=== PATIENT | male | born 1935 | race Caucasian/White ===

== ENCOUNTER 2017-01-10 19:37 | Observation (INO) | payer MEDICARE ==
[~2017-01-10] VITALS: Ht 175.3 cm; Wt 64.8 kg
[~2017-01-10 19:37] MED LIST: ATOR20TA65 PO; MULT-1018 PO; OMEP20CA11 PO; TRAM50TA2 PO
[2017-01-10] MEDS ORDERED: 0.9% Sodium Chloride 1,000 ML IV ONE (19:38)
--- NOTE | 2017-01-10 19:38 | ED.REPORT ---
HPI-Abd Pain M 40 and Over Date of Service January 10, 2017 ED Provider: Dr. Bello Wolf D.O. An 81 year old male with a medical history including diverticulosis and gastric cancer s/p subtotal gastrectomy with Antolin-en-Y reconstruction and cholecystectomy presents to the ED via EMS with epigastric abdominal pain onset suddenly at 1800 this evening, after eating pizza for dinner. The pain is described as "sharp" in nature. Associated symptoms include pallor and diaphoresis. EMS found the patient with a BP of 166/72, a respiration rate of 40 , and otherwise normal vital signs. He was given 324mg ASA, 75mcg fentanyl, and Nitro en route, with mild relief. The patient denies other symptoms. Nursing Notes Stated Complaint: UPPER GASTRIC PAIN Nursing Notes Reviewed: Yes Allergies: Coded Allergies: codeine (Verified Allergy, Intermediate, Nausea,Vomiting, 07/13/16) Scheduled Aspirin (Aspirin) 81 Mg Tablet 81 MG PO DAILY Atorvastatin Calcium (Atorvastatin Calcium) 10 Mg Tablet 10 MG PO HS Multivitamin (Multi Vitamin Daily) 1 Each Tablet 1 EACH PO DAILY Omeprazole (Omeprazole) 20 Mg Capsule.dr 20 MG PO DAILY Scheduled PRN Tramadol (Tramadol) 50 Mg Tablet 100 MG PO BID PRN PRN For Pain General Time Seen by MD: 19:37 Chief Complaint Abdominal pain Hx Obtained From: Patient Arrived By: Ambulance Sudden in Onset?: Yes Onset Occurred: 1 - 4 hours ago Symptom Duration: Since onset Location: : Epigastric Quality: Painful, Sharp Severity: Current: Moderate Severity: Maximum: Moderate Pertinent Negative: Relieved by nothing Context Related History: Reports: Abdominal surgery, Diverticulosis Recent Healthcare: No recent doctor visit Past Medical History Past Medical History Notes: PCP Dr. Duran Past Medical History Stage IA gastric cancer status post subtotal gastrectomy with Antolin-en-Y reconstruction and hiatal hernia repair July 24, 2012. TIA/CVA with ischemic left occipital infarcts, December 2015. Hyperlipidemia. Diverticulosis. Evaluation April 2016 for upper abdominal pain, suspected gastritis secondary to NSAID. Arthritis Spinal stenosis Past Surgical History Shoulder x2 Right heel Left achilles tendon Appendectomy. Tonsillectomy. Subtotal gastrectomy with Antolin-en-Y reconstruction and hiatal hernia repair July 24, 2012. Cholecystectomy Smoking History Former Smoker, Never Smoker Social History Alcohol Use: "Social" Ambulatory Status Independent Review of Systems Review of Systems Note: + Pallor Constitutional: Denies: Fever Respiratory: Denies: Non-productive cough, Shortness of breath GI: Reports: Abdominal pain (Epigastric), Denies: Diarrhea, Vomiting Complete sys rev & neg: except as marked. Skin: Reports Diaphoresis Physical Exam Initial Vital Signs Vital Signs (First) Date Time Temp Pulse Resp B/P Pulse Ox O2 Delivery O2 Flow Rate FiO2 01/10/17 19:56 36.4 77 24 135/69 100 Room Air Initial VS: Reviewed Head / Eyes: Atraumatic, Normocephalic ENT: Conjunctiva normal, No scleral icterus Neck: Supple, Full range of motion Skin: Warm, Dry, No cyanosis Neurologic: Alert, Oriented, Nonfocal Psychiatric: Mood/affect normal, Behavior normal, Normal thought content General/Constitutional: Awake, Alert, No acute distress Respiratory / Chest: Breath sounds NL, Breath sounds = bilat, No respiratory distress Cardiovascular: Heart rate NL, Regular rhythm, Heart sounds NL Abdomen: Soft Tenderness/Guarding/Rebound: Positive: Tender epigastric Interpretation & Diagnostics Lab Results Interpretation Result Diagram: 01/11/17 0415 01/11/17 0415 Test 01/10/17 19:45 01/10/17 21:42 01/10/17 22:43 Magnesium Level 2.0mg/dL (1.6-2.6) Lipase 46U/L (13-60) Acetaminophen Level < 15.0ug/mL Rx (10-25) Hold Urine Received (Received) Lactic Acid Level 0.7mmol/L (0.4-2.0) ECG Interpretation ECG Interpretation: Sinus rhythm rate [address] segments Time: 19:46 Interpreted by: ED physician X-Ray Chest Interpretation Chest Xray Interpretation: IMPRESSION: No acute pulmonary process. Dictated by: Liat Tan M.D. on 01/10/2017 at 20:20 View: Portable, 1 view Interpretation / Wet Read by: Interpret - Radiologist CT Abd / Pelvis Interpretation IMPRESSION: 1. No visualized acute abdominal or pelvic process. 2. Gastric surgery changed, unchanged 3. Diverticulosis. Dictated by: Liat Tan M.D. on 01/10/2017 at 22:14 Study type: Abdominal CT IV contrast Interpretation / Wet Read by: Interpret - Radiologist Re-Eval/Medical Decision Med Decision/Clinical Course The cause of Mr. Lazaro symptoms are uncertain. He has intermittent abdominal pain with mild transaminitis. CT scan is otherwise reassuring. I will admit him to the hospital for observation. I think his cardiac enzymes and liver enzymes need to be trended. I did call his insurance [employer] and left a message. Mr. Lazaro was concerned because he did not wish to be admitted if he was considering observation for fear of having to pay the bill. I was unable to speak with a person who can answer this question. After discussing this with Mr. Mrs. Lazaro we have agreed that he will spend the night in the hospital and we will go from there. Time of Eval: 20:37 Patient Status: Condition worsened Re-Evaluation/Progress Note: Patient's pain has worsened. Time of Eval: 22:46 Patient Status: Condition improved Re-Evaluation/Progress Note: Patient is feeling better. Time of Eval: 23:08 Patient Status: Condition improved Re-Evaluation/Progress Note: Patient is more tender in his epigastrium. Discussed with patient CT, x-ray, and lab results, diagnosis, and plan for admit. Patient agrees with plan for care and all questions were addressed. Consultation : Referral / Consult Name: Jai Palomo MD Call Returned at: 23:16 Compensation Specialist: Agrees with eval, Agrees with plan, Accepts admit Counseled Regarding: Diagnosis, Lab results, Need for admission Discharge & Departure Primary Impression: Abdominal pain Abdominal location: epigastric Qualified Code: R10.13 - Epigastric pain Disposition: ADMITTED TO HOSPITAL Vital Signs - All Vital Signs Date Time Temp Pulse Resp B/P Pulse Ox O2 Delivery O2 Flow Rate FiO2 01/10/17 19:56 36.4 77 24 135/69 100 Room Air )( All Prior VS Reviewed: Yes Condition: Improved Referrals: Ryder Duran MD (PCP) Terrence Attestation Portions of this note were transcribed by Sonya Sam. I, Dr. Wolf, personally performed the history, physical exam, and medical decision-making; I reviewed and confirmed the accuracy of the information in the transcribed note. Signed by: Terrence Wallace, 01/11/2017, 01:45 copies to: Ryder Duran MD, Todd P DO January 10, 2017 19:38 SONYA SAM January 10, 2017 19:53 Magnesium Level 2.0mg/dL (1.6-2.6) Total Bilirubin 0.4mg/dL (0.0-1.2) Aspartate Amino Transf (AST/SGOT) 135U/L (0-50) Alanine Aminotransferase (ALT/SGPT) 70U/L (0-44) Alkaline Phosphatase 136U/L (25-160) Troponin T < 0.010ug/L (0.0-0.011) Total Protein 6.4g/dL (6.4-8.4) Albumin 3.6g/dL (3.4-5.0) Lipase 46U/L (13-60) Hold Urine Received (Received) Lactic Acid Level 0.7mmol/L (0.4-2.0) ECG Interpretation ECG Interpretation: Sinus rhythm rate [address] segments Time: 19:46 Interpreted by: ED physician X-Ray Chest Interpretation Chest Xray Interpretation: IMPRESSION: No acute pulmonary process. Dictated by: Liat Tan M.D. on 01/10/2017 at 20:20 View: Portable, 1 view Interpretation / Wet Read by: Interpret - Radiologist CT Abd / Pelvis Interpretation IMPRESSION: 1. No visualized acute abdominal or pelvic process. 2. Gastric surgery changed, unchanged 3. Diverticulosis. Dictated by: Liat Tan M.D. on 01/10/2017 at 22:14 Study type: Abdominal CT IV contrast Interpretation / Wet Read by: Interpret - Radiologist Re-Eval/Medical Decision Time of Eval: 20:37 Patient Status: Condition worsened Re-Evaluation/Progress Note: Patient's pain has worsened. Time of Eval: 22:46 Patient Status: Condition improved Re-Evaluation/Progress Note: Patient is feeling better. Time of Eval: 23:08 Patient Status: Condition improved Re-Evaluation/Progress Note: Patient is more tender in his epigastrium. Discussed with patient CT, x-ray, and lab results, diagnosis, and plan for admit. Patient agrees with plan for care and all questions were addressed. Consultation : Referral / Consult Name: Jai Palomo MD Call Returned at: 23:16 Compensation Specialist: Agrees with eval, Agrees with plan, Accepts admit Counseled Regarding: Diagnosis, Lab results, Need for admission Discharge & Departure Primary Impression: Abdominal pain Abdominal location: epigastric Qualified Code: R10.13 - Epigastric pain Disposition: ADMITTED TO HOSPITAL Vital Signs - All Vital Signs Date Time Temp Pulse Resp B/P Pulse Ox O2 Delivery O2 Flow Rate FiO2 01/10/17 19:56 36.4 77 24 135/69 100 Room Air )( All Prior VS Reviewed: Yes Condition: Improved Referrals: Ryder Duran MD (PCP) Scribe Attestation Portions of this note were transcribed by Sonya Sam. I, Dr. Wolf, personally performed the history, physical exam, and medical decision-making; I reviewed and confirmed the accuracy of the information in the transcribed note. Signed by: Terrence Wallace, 01/11/2017, 01:45 copies to: Ryder Duran MD, Todd P DO January 10, 2017 19:38 SONYA SAM January 10, 2017 19:53
[2017-01-10] MEDS ORDERED: fentaNYL-PF 50 mCg/mL 2 mL Inj IVPUSH PRN (19:50)
[2017-01-10 19:56] VITALS: BP 135/69; PULSE 77; RESP 24; O2SAT 100
[2017-01-10 19:56] LABS: BASOPHILS % (AUTO) 0.6 % (0-3); MONOCYTES % (AUTO) 9.9 % (4-12); Mean Corpuscular Hemoglobin 32.1 pg (27.0-35.0); Mean Corpuscular Volume 94.7 fL (81-100); NEUTROPHILS % (AUTO) 57.5 % (40-74); Platelet Count 189 bil/L (150-400)
--- NOTE | 2017-01-10 20:22 | DRSVH ---
PROCEDURE: X-RAY CHEST ONE VIEW, PORTABLE ([id number]) INDICATIONS: upper gut pain TECHNIQUE: One view of the chest was acquired. COMPARISON: None. FINDINGS: Surgical changes and devices: None. Lungs and pleura: No pleural effusions or pneumothorax. Lungs are clear. Mediastinum: Mediastinal contours appear normal. Heart size is normal. Large hiatal hernia is pres ent. Bones and chest wall: No suspicious bony lesions. Overlying soft tissues appear unremarkable. IMPRESSION: No acute pulmonary process. Dictated by: Liat Tan M.D. on 01/10/2017 at 20:20 Approved by: Liat Tan M.D. on 01/10/2017 at 20:21
[2017-01-10 20:29] LABS: Lipase 46 U/L (13-60)
[2017-01-10 20:31] LABS: TROPONIN T < 0.010 ug/L (0.0-0.011)
[2017-01-10] MEDS: HYDROmorphone 0.5 mg/0.5 mL iSecure Syringe IVPUSH PRN ×3 (20:48→23:28)
--- NOTE | 2017-01-10 22:17 | DRSVH ---
PROCEDURE: CT ABDOMEN AND PELVIS WITH CONTRAST ([id number]) INDICATIONS: midline epigastric pain TECHNIQUE: After the administration of intravenous contrast, 5 mm thick sections acquired from the diaphragm to the symphysis. 5 mm coronal and sagittal reformats were acquired. For radiation dose reduction, the following was used: automated exposure control, adjustment of mA and/or kV according to patient siz e. COMPARISON: None. FINDINGS: Image quality: Excellent. ABDOMEN: Lung bases: Lung bases are clear. Heart size is normal. Solid organs: Liver and spleen are normal in size and enhancement. Gallbladder has been removed. Th ere is mild prominence of the extrahepatic biliary system, unchanged and suspected to be post cholecy stectomy sequela. However, recommend correlation to laboratory values. Pancreas enhances normally. N o adrenal nodules. Kidneys demonstrate normal size and enhancement, without hydronephrosis. Peritoneum and bowel: Bowel loops demonstrate normal wall thickness and caliber. No free fluid or a ir. Prominent hiatal hernia is present. Gastric surgery changes are present. Distal esophageal thick ening, unchanged compared to prior exam. Diverticula are present without visualized inflammatory suarez ge. Nodes and vessels: No retroperitoneal or mesenteric adenopathy by size criteria. Aorta and inferior vena cava are normal in size. Miscellaneous: No ventral hernias. PELVIS: Genitourinary: Bladder wall thickness is normal. Miscellaneous: No inguinal hernias or adenopathy. Bones: No suspicious bony lesions. No vertebral body compression fractures. IMPRESSION: 1. No visualized acute abdominal or pelvic process. 2. Gastric surgery changed, unchanged 3. Diverticulosis. Dictated by: Liat Tan M.D. on 01/10/2017 at 22:14 Approved by: Liat Tan M.D. on 01/10/2017 at 22:15
[2017-01-10] MEDS ORDERED: 0.9% Sodium Chloride 1,000 ML IV SCH (23:16)
[2017-01-10] MEDS ORDERED: Alum-Mag Hydrox-Simeth 30 mL Suspension PO PRN (23:20)
[2017-01-10] MEDS ORDERED: Ondansetron 2 mg/mL 2 mL Inj IVPUSH PRN (23:20)
[2017-01-10] MEDS ORDERED: Polyethylene Glycol (PEG) 17 Gm Powder PO PRN (23:20)
[2017-01-10 23:53] VITALS: BP 116/64; PULSE 86; RESP 18; O2SAT 98
[2017-01-11] VITALS (10 sets, daily range): BP systolic 105–158; BP diastolic 62–90; PULSE 58–82; RESP 14–32; O2SAT 94–100
[2017-01-11] MEDS ORDERED: 0.9% Sodium Chloride 1,000 ML IV SCH (01:05)
[2017-01-11] MEDS: Heparin 5,000 Unit/mL Inj SUBQ SCH ×4 (01:18→23:36)
--- NOTE | 2017-01-11 01:21 | PCM.HPMED ---
Subjective Date of Service January 11, 2017 Primary Provider: Admitting Physician: Jai Palomo MD Primary Care Physician: Ryder Duran MD Attending Physician: Jai Palomo MD Admit Status: From the Emergency Department Chief Complaint: Abdominal pain History of Present Illness: Pete Lazaro is a very pleasant 81 year old man with a PMH of gastric cancer s/p subtotal gastrectomy with Antolin-en-Y in 2011 who presents with a 1 day history of sharp 8-9/10 abdominal pain with onset after eating a slightly larger than normal meal of Pizza at home. He denies any associated symptoms such as nausea, vomiting, bloating, gas, cramping, hematochezia, or GERD. He describes the pain as sharp, and radiating straight through the epigastric region to the back on the same level. He denies ever having had any similar sensation in the past. He states that her currently feels much better, though he does have some lingering pain and is concerned that the pain may recurr. In the ED laboratory evaluation and imaging including abd xray and abd CT were negative for any acute process, his surgical change appear unchanged from prior imaging. Review of Systems: Comprehensive ROS negative except as listed above in the HPI Allergies Coded Allergies: codeine (Verified Allergy, Intermediate, Nausea,Vomiting, 07/13/16) Home Medications Scheduled Atorvastatin Calcium (Atorvastatin Calcium) 20 Mg Tablet 20 MG PO DAILY Multivitamin (Multi Vitamin Daily) 1 Each Tablet 1 EACH PO DAILY Omeprazole (Omeprazole) 20 Mg Capsule.dr 20 MG PO DAILY Scheduled PRN Tramadol (Tramadol) 50 Mg Tablet 50 MG PO QID PRN PRN For Pain PMH Stage IA gastric cancer status post subtotal gastrectomy with Antolin-en-Y reconstruction and hiatal hernia repair July 24, 2012. TIA/CVA with ischemic left occipital infarcts, December 2015. Hyperlipidemia. Diverticulosis. Evaluation April 2016 for upper abdominal pain, suspected gastritis secondary to NSAID. Arthritis Spinal stenosis Surgical History Shoulder x2 Right heel Left achilles tendon Appendectomy. Tonsillectomy. Subtotal gastrectomy with Antolin-en-Y reconstruction and hiatal hernia repair July 24, 2012. Cholecystectomy Family History Father with DC in his 70s, mother lived well into her 90s Social History Hx Alcohol Use: Yes (rarely) Hx Substance Use: No Hx Tobacco Use: No Smoking Status: Former Smoker Exam Vital Signs Vital Sign - Last Date Time Temp Pulse Resp B/P Pulse Ox O2 Delivery O2 Flow Rate FiO2 01/10/17 23:53 86 18 116/64 98 Room Air 01/10/17 19:56 36.4 Intake and Output 01/10/17 01/10/17 01/11/17 Cumulative From/Thru 15:00 23:00 07:00 01/10/17 19:56 - 01/10/17 20:11 Intake Total 1000 ml 1000 ml Balance 1000 ml 1000 ml Intake IV Total 1000 ml 1000 ml Exam Gen: A/O x3 pleasant cooperative male in NAD, appears younger than stated age Neck: Supple, non tender, no thyromegaly, Full ROM HEENT: PERRL, EOMI, no scleral icterus, no conjunctival pallor CV: RRR, slight 2/6 diastolic murmur best heard at right lower sternal border, no rubs or gallops Resp: Lungs CTA BL, no wheezing rales or rhonchi Abd: Well healed midline abdominal scar extending from epigastric region to waistline, tender to palpation in the epigastric region, +BS 4q, no organomegaly , no rebound guarding or tenderness Extr: No cyanosis clubbing or edema Neuro: CN 2-12 grossly intact, no focal neurologic deficit Lab and Diagnostics Labs Item Value Date Time Red Blood Count 4.92 mil/mm3 01/10/171944 Neutrophils (%) (Auto) 57.5 % 01/10/171944 Monocytes (%) (Auto) 9.9 % 01/10/171944 Lymphocytes (%) (Auto) 27.9 % 01/10/171944 Eosinophils (%) (Auto) 4.0 % 01/10/171944 Basophils (%) (Auto) 0.6 % 01/10/171944 Estimat Glomerular Filtration Rate 77 mL/min 01/10/171944 Lactic Acid Level 0.7 mmol/L 01/10/172242 Calcium Level 9.9 mg/dL 01/10/171944 Magnesium Level 2.0 mg/dL 01/10/171944 Total Bilirubin 0.4 mg/dL 01/10/171944 Aspartate Amino Transf (AST/SGOT) 135 U/L H 01/10/171944 Alanine Aminotransferase (ALT/SGPT) 70 U/L H 01/10/171944 Alkaline Phosphatase 136 U/L 01/10/171944 Troponin T < 0.010 ug/L 01/10/171944 Total Protein 6.4 g/dL 01/10/171944 Lipase 46 U/L 01/10/171944 Albumin 3.6 g/dL 01/10/171944 Result Diagram: 01/10/17194401/10/171944 X-Rays, CTs and MRIs X-RAY CHEST ONE VIEW, PORTABLE IMPRESSION: No acute pulmonary process. Dictated by: Liat Tan M.D. on 01/10/2017 at 20:20 Approved by: Liat Tan M.D. on 01/10/2017 at 20:21 CT ABDOMEN AND PELVIS WITH CONTRAST IMPRESSION: 1. No visualized acute abdominal or pelvic process. 2. Gastric surgery changed, unchanged 3. Diverticulosis. Dictated by: Liat Tan M.D. on 01/10/2017 at 22:14 Approved by: Liat Tan M.D. on 01/10/2017 at 22:15 . 12-lead ECG NSR rate 73, no acute ST changes Assessment & Plan Pete Lazaro is an 81 year old man with a PMH as listed above inclusive of past gastric cancer s/p subtotal gastrectomy with Antolin-en-Y who presents with abrupt onset epigastric abdominal pain without any associated symptoms after eating a slightly larger than normal meal of pizza. The etiology of the patient' s pain is unclear at this point, it may well be just distension from an overly large meal in the setting of gastric surgery; however, more concerning pathology such as ischemic process cannot be excluded 1. Abdominal pain, POA, acute. Improved -Imaging unremarkable as above -Lab evaluation significant only for Transaminitis -Patient symptoms improved significantly with IV dilaudid, continued at 0.5-1 mg q4 PRN -Patient may benefit from barium swallow to characterize upper GI tract and peristalsis -Consider CT angio of mesenteric vessels should his symptoms fail to improve -Trending Trop to ascertain if there is any underlying cardiac etiology -A1c pending to eval for possible gastroparesis component(no previously diagnosed DM, but sugar is elevated upon presentation) -NPO until symptoms improve -NS @ 100 ml/hr -DDx includes -Gastroparesis -Bowel ischemia -Derangement of post surgical anatomy -developing SBO -abdominal distension due to large meal s/p gastric surgery -NSAID related gastritis -Recurrence of gastric malignant process 2. Transaminitis, POA, chronicity unknown. Active -ALT/AST elevated at 70/135 respectively -Patient denies regular alcohol consumption -No associated nausea, vomiting, bloating or distension -Patient with recent evaluation for likely NSAID related gastritis -DDx included -NSAID toxicity(patient denies excessive NSAID use) -Ischemic hepatitis -Alcohol use(patient denies) -Autoimmune process -Repeat CMP tomorrow AM -Avoid NSAID or other hepatotoxic compounds 3. Hyperglycemia, POA, chronicity unknown. Active -Glucose 163 on presentation -Patient without previous diagnosis of DM -HA1c pending -Holding off on correction as patient will be NPO Code Status: FULL CODE Disposition: observation, anticipated length of stay <2 midnights, though patient may need to be converted to inpatient status should subsequent evaluation reveal concerning pathology. Pain Evaluation: Adequate Pain Control GI Prophylaxis: Proton Pump Inhibitor VTE Prophylaxis: Sub-Q Heparin (Unfractionated) VTE Mechanical Devices: Intermittant Pneumatic CD Resuscitation Status: CPR: Attempt Resuscitation Attending Statement The patient was seen and examined together with Dr. Domingo on 01/10 and I agree with the history, exam and plan as outlined in the note above. Josh Domingo DO January 11, 2017 01:21 Jai Palomo MD January 11, 2017 02:37
[2017-01-11] MEDS ORDERED: ATOR10TA66 PO (01:44)
[2017-01-11] MEDS ORDERED: ASPI-973 PO (01:44)
[2017-01-11 04:41] LABS: BASOPHILS % (AUTO) 0.4 % (0-3); EOSINOPHILS % (AUTO) 2.6 % (0-5); MONOCYTES % (AUTO) 10.9 % (4-12); Mean Corpuscular Hemoglobin 31.9 pg (27.0-35.0); Mean Corpuscular Volume 94.4 fL (81-100); NEUTROPHILS % (AUTO) 66.4 % (40-74); Platelet Count 164 bil/L (150-400)
--- NOTE | 2017-01-11 05:40 | NUR ---
Admit Note/Labs Pt admitted to room 2025 at about 0045 last night. Pt denied any pain at this time, oriented to room and able to answer admission questions. Med rec done per pt interview and med containers. Tele SR 70s. FYI page sent to this morning about significant increase in liver enzymes. Pt has been sleeping since admission and verbalized understanding to update nursing if pain were to return. All vitals stable. Pt kept NPO per orders. No c/o pain so far. Ongoing care.
[2017-01-11] MEDS: Sodium Chloride LOK Flush 10 mL Syringe IVFLUSH SCH ×2 (08:10→16:32)
--- NOTE | 2017-01-11 10:12 | DRSVH ---
PROCEDURE: US ABDOMEN INDICATIONS: abd pain, rising LFTs TECHNIQUE: Real-time scanning was performed of the abdominal and retroperitoneal organs, with image documentatio n. COMPARISON: [facility], US, ABDOMEN SONOGRAM, 01/20/2005, 8:16. [facility], CT, CT ABD PELVIS W CON, 01/10/2017, 21:27. FINDINGS: Liver length: 15.54 cm CHD: 6.80 mm CBD: 7 mm Spleen length: 7.82 cm Right kidney length: 10.11 cm Left kidney length: 10.38 cm Aorta(Proximal): 2.64 cm Aorta(Mid): 2.01 cm Aorta(Distal): 1.89 cm RCIA: 1.12 cm LCIA: 1.19 cm Liver: Liver is normal in size and homogeneous in echotexture. Gallbladder: Post cholecystectomy. Biliary ducts: Intrahepatic bile ducts are non-dilated. Extrahepatic bile duct caliber is normal. Normal is 6-7 mm or less in diameter, or 10 mm or less post-cholecystectomy. Pancreas: Visualized portions of the pancreas are sonographically normal. Spleen: Spleen is normal in size and homogeneous in echotexture. Kidneys: Kidneys are normal in size and echotexture. No hydronephrosis or nephrolithiasis. No ace d masses. Aorta: Visualized aorta is normal in caliber at less than 3 cm. Iliacs: Proximal common iliac arteries are normal in caliber at less than 2.5 cm. IVC: Intrahepatic inferior vena cava is patent. Miscellaneous: No free abdominal fluid. IMPRESSION: No acute process identified sonographically. Dictated by: Eric CLINTON Interpreted: Liat Tan MD on 01/11/2017 at 10:11 Transcribed by: JAMES on 01/11/2017 at 10:12 Approved by: Liat Tan M.D. on 01/11/2017 at 17:14
--- NOTE | 2017-01-11 10:27 | NUR ---
Case Management: STEPHANI given and explained to pt. Grace TITUSRN
--- NOTE | 2017-01-11 15:29 | NUR ---
Social Work Note - Initial Assessment: D: See Initial Assessment. The Pt is an 81 y/o male that was admitted under observation status for abdominal pain. The Pt's PCP is MD Ryder Duran and his insurance is [employer] [place] Medicare. EMR reviewed. CALLIE met with the Pt and his family to explain role and discuss discharge planning. CALLIE telephone number written on white board. The Pt lives independently in a a one story home in [place] with his . Advanced Directive not on file, paperwork requested. The Pt continues to drive, does not use any DME, and has no HH/SNF history. The Pt and family deny any needs at this time, SW to follow if needs arise. P: The Pt is not medically stable for discharge at this time, likely to discharge home via family POV transportation when medically ready. The Pt and family deny any needs at this time, SW to follow if needs arise. LILLIAN Aguilar Neck Cutter Addendum: 01/11/17 at 1532 by ALBERT BUTLER Amended: Links added. Addendum: 01/11/17 at 1553 by SUREKHA PATEL SS SW internal audit consultant note has been reviewed. LILLIAN Greenberg
--- NOTE | 2017-01-11 17:00 | NUR ---
Bowel status Pt had 4 loose BMs this shift. They did not smell abnormal nor were they completely liquid. No bowel care was given. MD notified.
--- NOTE | 2017-01-11 17:49 | PCM.PNMED ---
Subjective Date of Service January 11, 2017 Subjective Mr. Freeman is a pleasant 81-year-old man with a past medical history of gastric cancer status post subtotal gastrectomy with Antolin-en-Y in 2011 who presents as a 1 day history of sharp 9 out of 10 abdominal pain with onset after eating a large meal. He denies any associated symptom, denies nausea, vomiting, bloating, gas, cramping, hematochezia, heartburn. He reports today that the pain is resolved but he wants to know what is going on. Exam Vital Signs Vital Sign - Last Date Time Temp Pulse Resp B/P Pulse Ox O2 Delivery O2 Flow Rate FiO2 01/11/17 16:05 36.6 66 32 134/79 96 Room Air Intake and Output 01/10/17 01/10/17 01/11/17 Cumulative From/Thru 15:00 23:00 07:00 01/10/17 19:56 - 01/11/17 05:49 Intake Total 1000 ml 392 ml 1392 ml Balance 1000 ml 392 ml 1392 ml IV Total 1000 ml 392 ml 1392 ml Exam Gen: A/O x3 pleasant cooperative male in NAD, appears younger than stated age Neck: Supple, non tender, no thyromegaly, Full ROM HEENT: EOMI, no scleral icterus, no conjunctival pallor CV: RRR, no murmur, no rubs or gallops Resp: Lungs CTA BL, no wheezing rales or rhonchi Abd: Well healed midline abdominal scar extending from epigastric region to waistline, tender to palpation in the epigastric region, +BS 4q, no organomegaly , no rebound guarding or tenderness Extr: No cyanosis clubbing or edema Neuro: CN 2-12 grossly intact, no focal neurologic deficit IVs and Medications Medications Reviewed: Medications were reviewed in detail Lab and Diagnostics Result Diagram: 01/11/1741401/11/17414 X-Rays, CTs and MRIs X-RAY CHEST ONE VIEW, PORTABLE IMPRESSION: No acute pulmonary process. CT ABDOMEN AND PELVIS WITH CONTRAST IMPRESSION: 1. No visualized acute abdominal or pelvic process. 2. Gastric surgery changed, unchanged 3. Diverticulosis. 12-lead ECG NSR rate 73, no acute ST changes Additional Diagnostics Abdominal ultrasound 01/11/2017 IMPRESSION: No acute process identified sonographically. Assessment & Plan Pete Lazaro is an 81 year old man with a PMH as listed above inclusive of past gastric cancer s/p subtotal gastrectomy with Antolin-en-Y who presents with abrupt onset epigastric abdominal pain without any associated symptoms after eating a slightly larger than normal meal of pizza. The etiology of the patient' s pain is unclear at this point. 1. Abdominal pain, POA, acute. Improved -Imaging unremarkable on abdominal ultrasound, abdominal CT, chest x-ray -Lab evaluation significant only for Transaminitis, increase in transaminitis overnight, AST 567, ALT 450, alkaline phosphatase 169. -Patient symptoms improved significantly with IV dilaudid, continued at 0.5-1 mg q4 PRN -Consider CT angio of mesenteric vessels should his symptoms fail to improve -Negative troponins 2 -A1c pending to eval for possible gastroparesis component(no previously diagnosed DM, but sugar is elevated upon presentation) -Clear liquids on 01/11/2017 -NS @ 100 ml/hr stopped on 01/11/2017 -GI consult with Dr. Ramírez much appreciated: He recommends MRCP tomorrow 2. Transaminitis, POA, chronicity unknown. Active -ALT/AST elevated at 70/135 on 01/10/2017 rising to 450/567 on 01/11/2017 -Patient denies regular alcohol consumption -No associated nausea, vomiting, bloating or distension -Patient with recent evaluation for likely NSAID related gastritis -Viral hepatitis panel ordered and pending -Repeat CMP tomorrow AM -Workup for autoimmune hepatitis: KALYN, ASMA, AntiLKMalc -Avoid NSAID or other hepatotoxic compounds 3. Hyperglycemia, POA, chronicity unknown. Active -Glucose 163 on presentation, 109 on 01/11/17 -Patient without previous diagnosis of DM -HA1c pending Code Status: FULL CODE Disposition: observation, anticipated length of stay <2 midnights, though patient may need to be converted to inpatient status should subsequent evaluation reveal concerning pathology. Pain Evaluation: Adequate Pain Control (scattered) GI Prophylaxis: Proton Pump Inhibitor VTE Prophylaxis: Sub-Q Heparin (Unfractionated) VTE Mechanical Devices: Intermittant Pneumatic CD Resuscitation Status: CPR: Attempt Resuscitation Attending Statement The patient was seen and examined together with Resident/House-staff on 01/11/17 and I agree with the history, exam and plan as outlined in the note above. Rigoberto Stokes DO January 11, 2017 17:49 Salvatore Veras January 14, 2017 16:54
--- NOTE | 2017-01-11 20:34 | DRSVH ---
PROCEDURE: MR ABDOMEN MRCP INDICATIONS: Transaminitis, elevated Alk Phos TECHNIQUE: Coronal HASTE through the abdomen, axial 2-D FLASH in- and [id number], and breath-hold T2 FSE with fat saturation through the biliary system and pancreas. Oblique coronal and axial thin-slice HASTE, radial thick-slab HASTE centered on the extrahepatic bile ducts. Intravenous secretin: Not requested. COMPARISON: [facility], CT, CT ABD PELVIS W CON, 01/10/2017, 21:27. FINDINGS: Image quality: There is severe motion degradation of the study due to patient inability to breath-hol d. Pancreas and biliary system: Intra- and extra-hepatic biliary ducts are mildly prominent, and there is abrupt transition points seen in the region of the common bile duct however this is not well-visua lized due to motion artifact. In the adequate images, no intraluminal filling defects are seen. Pancreas is normal in morphology, without adjacent soft tissue edema. Pancreatic duct is normal in caliber, without developmental anomalies. Gallbladder surgically absent. Other solid organs: Liver and spleen are normal in size. No adrenal nodules. Both kidneys are norm al in size, without hydronephrosis. Nodes and vessels: No retroperitoneal or mesenteric adenopathy by size criteria. Aorta and inferior vena cava are normal in size. Bowel and peritoneum: Unenhanced bowel loops are normal in caliber. No free fluid. Lung bases: No basal pleural effusions. Heart size is normal. Bones and soft tissues: No ventral hernias. Bone marrow is of normal overall signal. IMPRESSION: Uncontrolled respiratory motion, which renders examination almost nondiagnostic. There is mild promin ence of the intra-and extrahepatic ducts with a possible abrupt transition point in the common bile d uct, however this is not well-visualized due to motion artifact. If there is high clinical suspicion recommend dedicated ERCP or repeat examination when adequate breath holding can be performed. Dictated by: Layo Weber M.D. on 01/11/2017 at 20:26 Approved by: Layo Weber M.D. on 01/11/2017 at 20:32
[2017-01-12] MEDS: Sodium Chloride LOK Flush 10 mL Syringe IVFLUSH SCH ×2 (00:30→09:19)
--- NOTE | 2017-01-12 01:13 | NUR ---
Transfer of Care Report called to [facility] RN and pt transferred to room 1002 at around 2300. Pt given Tramadol for back pain but otherwise appeared in no distress. Pt transferred by wheelchair with all belongings and chart w/ CERTIFIED ADDICTION COUNSELOR.
--- NOTE | 2017-01-12 03:14 | NUR ---
Transfer from 2025 to Room 1002 Patient arrived to room 1002 at 2305 via hospital wheelchair. VSS. Patient states only complaint is back pain. Tramadol administered by [facility] RN before arrival. IV not patent. New IV will be started. Call light within reach. Care continues.
[2017-01-12 03:37] LABS: BASOPHILS % (AUTO) 0.5 % (0-3); MONOCYTES % (AUTO) 13.1 % (4-12); Mean Corpuscular Hemoglobin 30.3 pg (27.0-35.0); NEUTROPHILS % (AUTO) 69.5 % (40-74); Platelet Count 177 bil/L (150-400)
[2017-01-12 05:09] LABS: Hepatitis A Antibody IgM Negative (Negative); Hepatitis B Core Antibody IgM Negative (Negative)
[2017-01-12 05:32] VITALS: BP 141/77; PULSE 51; RESP 20; O2SAT 97
[2017-01-12 08:30] VITALS: BP 134/80; PULSE 70; RESP 20; O2SAT 94
[2017-01-12] MEDS: Heparin 5,000 Unit/mL Inj SUBQ SCH (09:20)
[2017-01-12 11:13] VITALS: PULSE 65
[2017-01-12 12:42] VITALS: BP 134/83; PULSE 68; RESP 20; O2SAT 98
--- NOTE | 2017-01-12 13:29 | PCM.DIMED ---
Discharge Instructions Date of Service January 12, 2017 Dates of Hospitalization January 10, 2017 at 23:40 Discharge Diagnosis Discharge Diagnosis 1. Abdominal pain due to suspected biliary colic, POA, acute. resolved 2. Transaminitis, POA, cresolved Diet Low fat, Low Sodium Activity Limited until seen by PCP Call your provider Fever or Chills, Shortness of breath, Bleeding, Chest pain, Vomitting, Excessive diarrhea, Weakness (unilateral) Patient Instructions you were hospitalized due to abdominal pain. You had transient elevation of liver function test which resolved. Pain also resolved. It is unclear what causes the pain at this point. It is possible you had biliary colic and stone passed down. Please follow-up with PCP in 1 week. Please come back to emergency room if you have recurrence of pain. You may follow up with Dr. Green , car jockey who evaluated you in the hospital if any further nonacute abdominal pain. Follow-up plan Please follow-up with PCP in 1 week. Follow-up Provider: Avinash Arnett MD Follow-up with PCP in: 1 week Provider: Delano Green MD Follow-up in: 3 weeks Zoltan Koch MD January 12, 2017 13:29
--- NOTE | 2017-01-12 13:31 | NUR ---
Social Work: Discharge Data: Pt is on day 2 of hospitalization. EMR reviewed, d/c orders are in. No d/c planning needs at this time. DINING ROOM BUSSER will continue to follow if needs arise. Assessment: Pt who is independent at baseline. Plan: Pt will d/c home via POV today. No d/c planning needs at this time. DINING ROOM BUSSER will continue to follow if needs arise. LILLIAN Vergara
--- NOTE | 2017-01-12 13:57 | PCM.DC.MED ---
Discharge Summary Date of Service January 12, 2017 Dates of Hospitalization Date of Hospital Admission January 10, 2017 at 23:40 Date of Discharge: January 12, 2017 Providers: Admitting Physician: Jai Palomo MD Primary Care Physician: Ryder Duran MD Attending Physician: Jai Palomo MD Diagnosis at Time of Discharge Diagnosis at Time of Discharge 1. Abdominal pain due to suspected biliary colic, POA, acute. resolved 2. Transaminitis, POA, cresolved Consultations GI Dr Green Procedures XRay, CTs & MRIs X-RAY CHEST ONE VIEW, PORTABLE IMPRESSION: No acute pulmonary process. CT ABDOMEN AND PELVIS WITH CONTRAST IMPRESSION: 1. No visualized acute abdominal or pelvic process. 2. Gastric surgery changed, unchanged 3. Diverticulosis. PROCEDURE: MR ABDOMEN MRCP INDICATIONS: Transaminitis, elevated Alk Phos IMPRESSION: Uncontrolled respiratory motion, which renders examination almost nondiagnostic. There is mild prominence of the intra-and extrahepatic ducts with a possible abrupt transition point in the common bile duct, however this is not well-visualized due to motion artifact. If there is high clinical suspicion recommend dedicated ERCP or repeat examination when adequate breath holding can be performed. Dictated by: Layo Weber M.D. on 01/11/2017 at 20:26 ECG 12 Lead NSR rate 73, no acute ST changes Other Diagnostics Abdominal ultrasound 01/11/2017 IMPRESSION: No acute process identified sonographically. Brief History per HPI Pete Lazaro is a very pleasant 81 year old man with a PMH of gastric cancer s/p subtotal gastrectomy with Antolin-en-Y in 2011 who presents with a 1 day history of sharp 8-9/10 abdominal pain with onset after eating a slightly larger than normal meal of Pizza at home. He denies any associated symptoms such as nausea, vomiting, bloating, gas, cramping, hematochezia, or GERD. He describes the pain as sharp, and radiating straight through the epigastric region to the back on the same level. He denies ever having had any similar sensation in the past. He states that her currently feels much better, though he does have some lingering pain and is concerned that the pain may recurr. In the ED laboratory evaluation and imaging including abd xray and abd CT were negative for any acute process, his surgical change appear unchanged from prior imaging. Hospital Course Pete Lazaro is an 81 year old man with a PMH as listed above inclusive of past gastric cancer s/p subtotal gastrectomy with Antolin-en-Y who presents with abrupt onset epigastric abdominal pain without any associated symptoms after eating a slightly larger than normal meal of pizza. The etiology of the patient' s pain is unclear at this point. 1. Abdominal pain due to suspected biliary colic, POA, acute. Improved -Initial Imaging unremarkable on abdominal ultrasound, abdominal CT, chest x- ray -Lab evaluation significant for Transaminitis, increase in transaminitis overnight, AST 567, ALT 450, alkaline phosphatase 169. Transaminitis resulted the next morning on -Patient symptoms improved significantly -MRCP as above shows possible CBD obstruction. Discussed case with GI Dr. Green, patient had history of vinnie en Y and ERCP cannot be done. Patient symptoms has resolved. LFTs normal now. He probably had biliary colic. We will discharge home. Advised to come back if any symptoms -GI consult with Dr. Ramírez much appreciated 2. Transaminitis, POA, chronicity unknown. Resolved -ALT/AST elevated at 70/135 on 01/10/2017 rising to 450/567 on 01/11/2017. Normally LFT on 01/11 -Patient denies regular alcohol consumption -No associated nausea, vomiting, bloating or distension 3. Hyperglycemia, POA, chronicity unknown. Active -Glucose 163 on presentation, 109 on 01/11/17 -Patient without previous diagnosis of DM -HA1c 5.7 Condition on discharge stable Discharge home Exam Vital Signs (Last) Date Time Temp Pulse Resp B/P Pulse Ox O2 Delivery O2 Flow Rate FiO2 01/12/17 12:42 36.5 68 20 134/83 98 Room Air Exam Gen: A/O x3 pleasant cooperative male in NAD, appears younger than stated age Neck: Supple, non tender, no thyromegaly, Full ROM HEENT: EOMI, no scleral icterus, no conjunctival pallor CV: RRR, no murmur, no rubs or gallops Resp: Lungs CTA BL, no wheezing rales or rhonchi Abd: Well healed midline abdominal scar extending from epigastric region to waistline, nontender to palpation Extr: No cyanosis clubbing or edema Neuro: CN 2-12 grossly intact, no focal neurologic deficit Test 01/10/17 19:45 01/10/17 21:42 01/10/17 22:43 01/11/17 04:15 Magnesium Level 2.0mg/dL (1.6-2.6) Lipase 46U/L (13-60) Acetaminophen Level < 15.0ug/mL Rx (10-25) Hold Urine Received (Received) Lactic Acid Level 0.7mmol/L (0.4-2.0) Hemoglobin A1c 5.7% (4.8-5.6) Test 01/11/17 08:30 01/11/17 16:45 01/12/17 03:30 Hepatitis A IgM Antibody Negative (Negative) Hepatitis B Surface Antigen Negative (Negative) Hepatitis B Core IgM Antibody Negative (Negative) Hepatitis C Antibody <0.1s/co ratio (0.0-0.9) Hepatitis C Comment Comment (.) Troponin T < 0.010ug/L (0.0-0.011) White Blood Count 6.0th/mm3 (3.8-10.1) Red Blood Count 4.23mil/mm3 (4.40-5.80) Hemoglobin 12.8g/dL (13.8-17.2) Hematocrit 38.5% (41.0-50.0) Mean Corpuscular Volume 91.0fL (81-100) Mean Corpuscular Hemoglobin 30.3pg (27.0-35.0) Mean Corpuscular Hemoglobin Concent 33.2% (32.0-37.0) Red Cell Distribution Width 13.1% (12.3-15.4) Platelet Count 177bil/L (150-400) Neutrophils (%) (Auto) 69.5% (40-74) Lymphocytes (%) (Auto) 15.9% (14-46) Monocytes (%) (Auto) 13.1% (4-12) Eosinophils (%) (Auto) 1.0% (0-5) Basophils (%) (Auto) 0.5% (0-3) Sodium Level 139mEq/L (134-144) Potassium Level 4.0mEq/L (3.5-5.2) Chloride Level 103mEq/L (97-108) Carbon Dioxide Level 24mmol/L (18-29) Blood Urea Nitrogen 24mg/dL (8-27) Creatinine 1.00mg/dL (0.76-1.27) Estimat Glomerular Filtration Rate 76mL/min (>59) Glucose Level 103mg/dL (60-99) Calcium Level 8.7mg/dL (8.5-10.1) Total Bilirubin 0.9mg/dL (0.0-1.2) Aspartate Amino Transf (AST/SGOT) 13U/L (0-50) Alanine Aminotransferase (ALT/SGPT) 6U/L (0-44) Alkaline Phosphatase 44U/L (25-160) Total Protein 5.8g/dL (6.4-8.4) Albumin 3.9g/dL (3.4-5.0) Discharge Medications Discharge Medications Aspirin (Aspirin) 81 Mg Tablet 81 MG PO DAILY (Reported) Atorvastatin Calcium (Atorvastatin Calcium) 10 Mg Tablet 10 MG PO HS (Reported) Multivitamin (Multi Vitamin Daily) 1 Each Tablet 1 EACH PO DAILY (Reported) Omeprazole (Omeprazole) 20 Mg Capsule.dr 20 MG PO DAILY (Reported) As needed Tramadol (Tramadol) 50 Mg Tablet 100 MG PO BID PRN PRN For Pain (Reported) Followup Plan Disposition: home Follow-up plan Please follow-up with PCP in 1 week. Discharge Diet: Low fat, Low Sodium Discharge Activity: Limited until seen by PCP Patient Instructions you were hospitalized due to abdominal pain. You had transient elevation of liver function test which resolved. Pain also resolved. It is unclear what causes the pain at this point. It is possible you had biliary colic and stone passed down. Please follow-up with PCP in 1 week. Please come back to emergency room if you have recurrence of pain. You may follow up with Dr. Green , data compiler who evaluated you in the hospital if any further nonacute abdominal pain. Follow-up Provider: Avinash Arnett MD Follow-up with PCP in: 1 week Provider: Delano Green MD Follow-up in: 3 weeks copies to: Avinash Arnett MD, Melaku MD January 12, 2017 13:57 Follow-up with PCP in: 1 week Provider: Delano Green MD Follow-up in: 3 weeks Zoltan Koch MD January 12, 2017 13:57
--- NOTE | 2017-01-12 14:22 | NUR ---
Discharge To home via private vehicle with family at 14:20. Steady ambulation to door, declines wheelchair. IV discontinued intact. Pt and daughter express understanding of all discharge instructions and care notes. No Rx given. All belongings sent with pt.
== END 2017-01-12 14:20 | disposition home or self-care (01) ==
LOC: SED 19:37 → PCC 23:40 → OSC 01-11 23:01
PROVIDERS: ADMIT Hospitalist; ATTEND Hospitalist
DX: R10.13 Epigastric pain (principal); R74.0 Nonspecific elevation of levels of transaminase and lactic acid dehydrogenase [LDH]; R73.9 Hyperglycemia, unspecified; Z85.028 Personal history of other malignant neoplasm of stomach; Z86.73 Personal history of transient ischemic attack (TIA), and cerebral infarction without residual deficits; E78.5 Hyperlipidemia, unspecified; M19.90 Unspecified osteoarthritis, unspecified site; K57.30 Diverticulosis of large intestine without perforation or abscess without bleeding; M48.00 Spinal stenosis, site unspecified; Z87.891 Personal history of nicotine dependence; Z79.82 Long term (current) use of aspirin
CPT/HCPCS: 36415; 71010; 74177; 74181; 76700; 80053; 83036; 83605; 83690; 83735; 84484; 85025; 86038; 86255; 86376; 86705; 86709; 87340; 87341; 93005; 96361; 96374; 96375; 96376; 99285; G0378; G0472; G0480; J1170; J1644; J3010; J7030; Q9967

== ENCOUNTER 2017-01-21 11:29 | Emergency (ER) | payer MEDICARE ==
[~2017-01-21] VITALS: Ht 175.3 cm; Wt 70.0 kg
[~2017-01-21 11:29] MED LIST changes: +ASPI-973 PO; +ATOR10TA66 PO; -ATOR20TA65 PO
[2017-01-21 11:45] VITALS: BP 110/63; PULSE 90; RESP 22; O2SAT 93
--- NOTE | 2017-01-21 11:57 | ED.REPORT ---
HPI-Abd Pain M 40 and Over Date of Service January 21, 2017 ED Provider: Paulette Montano History of Present Illness: abd pain. patient of Dr. Green liver enzymes elevated. surgery 5 years ago for stomach cancer. Dr. Crawford did the surgery at . some vomiting this am. given oxycodone , very sleepy from pain meds per family. Nursing Notes Stated Complaint: R ABD PAIN Nursing Notes Reviewed: Yes Allergies: Coded Allergies: codeine (Verified Allergy, Intermediate, Nausea,Vomiting, 07/13/16) Scheduled Aspirin (Aspirin) 81 Mg Tablet 81 MG PO DAILY Atorvastatin Calcium (Atorvastatin Calcium) 10 Mg Tablet 10 MG PO HS Multivitamin (Multi Vitamin Daily) 1 Each Tablet 1 EACH PO DAILY Omeprazole (Omeprazole) 20 Mg Capsule.dr 20 MG PO DAILY Scheduled PRN Tramadol (Tramadol) 50 Mg Tablet 100 MG PO BID PRN PRN For Pain General Time Seen by MD: 11:55 Chief Complaint Abdominal pain Hx Obtained From: Patient, Spouse Sudden in Onset?: No Symptom Duration: Since onset Severity: Current: Pain level 7 out of 10 Past Medical History Past Medical History Notes: PCP Dr. Duran Past Medical History Stage IA gastric cancer status post subtotal gastrectomy with Antolin-en-Y reconstruction and hiatal hernia repair July 24, 2012. TIA/CVA with ischemic left occipital infarcts, December 2015. Hyperlipidemia. Diverticulosis. Evaluation April 2016 for upper abdominal pain, suspected gastritis secondary to NSAID. Arthritis Spinal stenosis Past Surgical History Shoulder x2 Right heel Left achilles tendon Appendectomy. Tonsillectomy. Subtotal gastrectomy with Antolin-en-Y reconstruction and hiatal hernia repair July 24, 2012. Cholecystectomy Smoking History Former Smoker (quit smoking in 1965) Social History Alcohol Use: "Social" Other Social History: Occupation lives with . 1 story house Ambulatory Status Independent Review of Systems Basic Review of Systems Eyes: Vision NL, No discharge Skin: No bruising, No rash, No itch Psychiatric: Normal thought content Physical Exam Initial Vital Signs Vital Signs (First) Date Time Temp Pulse Resp B/P Pulse Ox O2 Delivery O2 Flow Rate FiO2 01/21/17 11:45 38.4 90 22 110/63 93 Room Air Initial VS: Reviewed, Vital signs normal Head / Eyes: Atraumatic, Normocephalic, PERRL ENT: Mucous membranes moist, Conjunctiva normal, No scleral icterus Neck: Supple, Non-tender, Full range of motion Lymphatic: No lymphadenopathy Extremities: Vascular intact, Neuro intact, No swelling, No tenderness Skin: Warm, Dry, No cyanosis Neurologic: Alert, Oriented, Nonfocal Psychiatric: Mood/affect normal, Behavior normal, Normal thought content General/Constitutional: Awake, Alert, No acute distress, Well appearing, Well developed, Well hydrated Appearance / Presentation: Positive: Icteric Respiratory / Chest: Atraumatic, Breath sounds NL, Breath sounds = bilat, No respiratory distress Cardiovascular: Heart rate NL, Regular rhythm, Heart sounds NL Heart Rate / Rhythm: Positive: Tachycardia Tenderness/Guarding/Rebound: Positive: Guarding voluntary, Tender epigastric Back: Atraumatic, Inspection NL, Full range of motion Head / Eyes: Atraumatic, Normocephalic, PERRL, EOMI Color / Condition: Positive: Jaundice present Interpretation & Diagnostics Interpretation & Diagnostics: PROCEDURE: CT BRAIN WITHOUT CONTRAST ([id number]) INDICATIONS: sleepy TECHNIQUE: Noncontrast 4.5 mm thick angled axial sections acquired from the foramen magnum to the vertex, with coronal reformats. COMPARISON: , CT, BRAIN ([facility]), 12/28/2015, 10:41. FINDINGS: Image quality: Diagnostic. Brain: There is no acute intra-axial or extra-axial hemorrhage. No extra-axial fluid collection is identified. There is no midline shift or mass effect. The orbits are grossly unremarkable. No large areas of diffusely decreased attenuation are evident within the brain to suggest diffuse cerebral edema. Scattered focal and small confluent areas of low-attenuation are present within the periventricular and deep white matter of the supratentorial brain, which has a similar appearance to the prior study. The ventricles and cortical sulci are moderately prominent. Bones: Calvarium and visualized facial bones are grossly intact. The imaged paranasal sinuses and mastoid air cells are clear. IMPRESSION: 1. No acute intracranial hemorrhage. 2. Chronic small vessel ischemic changes are similar to the prior study. 3. Parenchymal volume loss with moderate ventricular prominence is similar to prior studies. Please correlate clinically to exclude the possibility of normal pressure hydrocephalus. Dictated by: Ambrocio Guy M.D. on 01/21/2017 at 12:57 Approved by: Ambrocio Guy M.D. on 01/21/2017 at 12:59 Lab Results Interpretation Result Diagram: 01/21/17 1150 01/21/17 1150 Test 01/21/17 11:50 01/21/17 12:45 01/21/17 13:23 01/21/17 13:50 White Blood Count 14.6th/mm3 (3.8-10.1) Red Blood Count 4.84mil/mm3 (4.40-5.80) Hemoglobin 15.8g/dL (13.8-17.2) Hematocrit 45.3% (41.0-50.0) Mean Corpuscular Volume 93.6fL (81-100) Mean Corpuscular Hemoglobin 32.6pg (27.0-35.0) Mean Corpuscular Hemoglobin Concent 34.9% (32.0-37.0) Red Cell Distribution Width 14.4% (12.3-15.4) Platelet Count 142bil/L (150-400) Neutrophils (%) (Auto) 77% (40-74) Lymphocytes (%) (Auto) 1% (14-46) Monocytes (%) (Auto) 0% (4-12) Eosinophils (%) (Auto) 0% (0-5) Basophils (%) (Auto) 0% (0-3) Band Neutrophils % 22% (1-5) Prothrombin Time 11.7sec (8.1-12.5) Prothromb Time International Ratio 1.09ratio Sodium Level 134mEq/L (134-144) Potassium Level 4.4mEq/L (3.5-5.2) Chloride Level 94mEq/L (97-108) Carbon Dioxide Level 22mmol/L (18-29) Blood Urea Nitrogen 25mg/dL (8-27) Creatinine 0.94mg/dL (0.76-1.27) Estimat Glomerular Filtration Rate 81mL/min (>59) Glucose Level 180mg/dL (60-99) Calcium Level 9.3mg/dL (8.5-10.1) Magnesium Level 1.9mg/dL (1.6-2.6) Total Bilirubin 6.2mg/dL (0.0-1.2) Aspartate Amino Transf (AST/SGOT) 913U/L (0-50) Alanine Aminotransferase (ALT/SGPT) 1169U/L (0-44) Alkaline Phosphatase 333U/L (25-160) Troponin T 0.010ug/L (0.0-0.011) Total Protein 6.0g/dL (6.4-8.4) Albumin 3.5g/dL (3.4-5.0) Ammonia 75ug/dL (18-53) Direct Bilirubin 4.6mg/dL (0.0-0.3) Urine Color [place] (YELLOW) Urine Appearance Clear (CLEAR,HAZY) Urine pH 5.5 (5.0-8.0) Urine Specific [place] 1.020 (1.003-1.035) Urine Protein 100mg/dL (NEG,TRACE) Urine Glucose (UA) 100mg/dL (NEGATIVE) Urine Ketones Negativemg/dL (NEGATIVE) Urine Occult Blood Trace (NEGATIVE) Urine Nitrite Negative (NEGATIVE) Urine Bilirubin Large (NEGATIVE) Urine Ictotest Positive (Negative) Urine Urobilinogen 2.0mg/dL (NORMAL) Urine Leukocyte Esterase Negative (NEGATIVE) Urine RBC 3-10/hpf (0-2) Urine WBC 0-5/hpf (0-5) Urine Epithelial Cells Occasional/hpf (NONE-MOD) Urine Crystals Amorphous urates (NONE Urine Bacteria None/hpf (NONE-FEW) Urine Hyaline Casts None/lpf (NONE) Urine Granular Casts None seen (NONE SEEN) Urine Waxy Casts None seen (NONE SEEN) Urine Red Blood Cell Casts None seen (NONE SEEN) Urine White Blood Cell Casts None seen (NONE SEEN) Urine Mucus None seen (None Seen) Urine Trichomonas None seen (NONE SEEN) Urine Yeast None (NONE SEEN) Urinalysis Comment None Urine Culture Reflexed Not indicated Test 01/21/17 17:01 Lactic Acid Level 2.2mmol/L (0.4-2.0) Lab Results Interpretation: lactic acid 2.5 then 2.9 then 2.2. Patient able to stand, denies dizziness X-Ray Interpretation Xray Interpretation: PROCEDURE: X-RAY ACUTE ABDOMINAL SERIES ([id number]) INDICATIONS: abdominal pain TECHNIQUE: One view chest and two views of the abdomen were acquired. COMPARISON: , CT, CT ABD PELVIS W CON, 01/10/2017, 21:27. , CR, XR CHEST 1VW (PORTABLE), 01/10/2017, 19:58. FINDINGS: Surgical changes and devices: None. Chest: Bibasilar linear densities are likely atelectasis. Heart size is normal. No pleural effusions. No pneumoperitoneum. Abdomen: Bowel gas pattern is normal. A large amount of stool is present in colon. No suspicious calcifications. Visualized solid organ contours appear normal. Bones: No suspicious bony lesions. There is levoscoliosis. 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 IMPRESSION: Large amount of stool in colon. Dictated by: Rell Way M.D. on 01/21/2017 at 13:30 Approved by: Rell Way M.D. on 01/21/2017 at 13:32 Re-Eval/Medical Decision Med Decision/Clinical Course 81 year old male presents for evualation of abd pain with vomiting. Patient with hx of gastric cancer with surgery 4 to 5 years ago[address] Green, with huge increase in liver enzymes, pateint needs ERCP which is not available in [facility]. Unable to return to . [facility], Dr. Dinh is accepting MD Patient is stable at time of transfer. Discharge & Departure Primary Impression: Abdominal pain Abdominal location: epigastric Qualified Code: R10.13 - Epigastric pain Additional Impression: Common bile duct (CBD) obstruction Disposition: Transfer, Acute Care Facility Vital Signs - All Vital Signs Date Time Temp Pulse Resp B/P Pulse Ox O2 Delivery O2 Flow Rate FiO2 01/21/17 18:43 36.7 96 22 86/54 95 Room Air 01/21/17 16:35 102 20 90/55 94 01/21/17 15:50 37.6 112 20 90/55 95 Room Air 01/21/17 15:36 117 20 97/56 93 Room Air 01/21/17 12:01 37.2 96 22 106/65 96 Room Air 01/21/17 11:45 38.4 90 22 110/63 93 Room Air Referrals: Ryder Duran MD (PCP) EDSupervising Provider for APC: Genaro Wells MD copies to: Ryder Duran MD, Sue ARNP January 21, 2017 11:57
[2017-01-21 12:01] VITALS: BP 106/65; PULSE 96; RESP 22; O2SAT 96
[2017-01-21] MEDS: 0.9% Sodium Chloride 1,000 ML IV SCH ×2 (12:10→16:34)
[2017-01-21] MEDS ORDERED: Ondansetron 2 mg/mL 2 mL Inj IVPUSH ONE (12:10)
[2017-01-21] MEDS ORDERED: HYDROmorphone 0.5 mg/0.5 mL iSecure Syringe IVPUSH PRN (12:10)
[2017-01-21] MEDS ORDERED: HYDROmorphone 1 mg/mL Inj IVPUSH ONE (12:25)
[2017-01-21 12:31] LABS: EOSINOPHILS % (AUTO) 0 % (0-5); Mean Corpuscular Hemoglobin 32.6 pg (27.0-35.0); Mean Corpuscular Volume 93.6 fL (81-100); Platelet Count 142 bil/L (150-400)
[2017-01-21 12:34] LABS: INR 1.09 ratio
[2017-01-21 12:45] LABS: TROPONIN T 0.01 ug/L (0.0-0.011)
[2017-01-21 12:56] LABS: Magnesium 1.9 mg/dL (1.6-2.6)
[2017-01-21 13:12] LABS: BASOPHILS % (AUTO) 0 % (0-3); MONOCYTES % (AUTO) 0 % (4-12); NEUTROPHILS % (AUTO) 77 % (40-74)
--- NOTE | 2017-01-21 13:34 | DRSVH ---
PROCEDURE: X-RAY ACUTE ABDOMINAL SERIES ([id number]) INDICATIONS: abdominal pain TECHNIQUE: One view chest and two views of the abdomen were acquired. COMPARISON: [facility], CT, CT ABD PELVIS W CON, 01/10/2017, 21:27. [facility], CR, XR CHEST 1VW (PORTABLE), 01/10/2017, 19:58. FINDINGS: Surgical changes and devices: None. Chest: Bibasilar linear densities are likely atelectasis. Heart size is normal. No pleural effusion s. No pneumoperitoneum. Abdomen: Bowel gas pattern is normal. A large amount of stool is present in colon. No suspicious ca lcifications. Visualized solid organ contours appear normal. Bones: No suspicious bony lesions. There is levoscoliosis. Moderate to severe degenerative disc dis ease in lumbar spine. IMPRESSION: Large amount of stool in colon. Dictated by: Rell Way M.D. on 01/21/2017 at 13:30 Approved by: Rell Way M.D. on 01/21/2017 at 13:32
[2017-01-21] MEDS ORDERED: Piperacillin-Tazo 3.375 Gm Inj 3.375 GM in Dextrose 5% Minibag Plus 50 ML IV ONE (13:45)
[2017-01-21] MEDS ORDERED: 0.9% Sodium Chloride 1,000 ML IV ONE ×2 (13:50→18:15)
--- NOTE | 2017-01-21 14:01 | DRSVH ---
PROCEDURE: CT BRAIN WITHOUT CONTRAST ([id number]) INDICATIONS: sleepy TECHNIQUE: Noncontrast 4.5 mm thick angled axial sections acquired from the foramen magnum to the vertex, with c oronal reformats. COMPARISON: [facility], CT, BRAIN ([facility]), 12/28/2015, 10:41. FINDINGS: Image quality: Diagnostic. Brain: There is no acute intra-axial or extra-axial hemorrhage. No extra-axial fluid collection is i dentified. There is no midline shift or mass effect. The orbits are grossly unremarkable. No large areas of diffusely decreased attenuation are evident within the brain to suggest diffuse cer ebral edema. Scattered focal and small confluent areas of low-attenuation are present within the per iventricular and deep white matter of the supratentorial brain, which has a similar appearance to the prior study. The ventricles and cortical sulci are moderately prominent. Bones: Calvarium and visualized facial bones are grossly intact. The imaged paranasal sinuses and m astoid air cells are clear. IMPRESSION: 1. No acute intracranial hemorrhage. 2. Chronic small vessel ischemic changes are similar to the prior study. 3. Parenchymal volume loss with moderate ventricular prominence is similar to prior studies. Please correlate clinically to exclude the possibility of normal pressure hydrocephalus. Dictated by: Ambrocio Guy M.D. on 01/21/2017 at 12:57 Approved by: Ambrocio Guy M.D. on 01/21/2017 at 12:59
[2017-01-21 14:22] LABS: APPEARANCE,URINE CLEAR (CLEAR,HAZY); COLOR,URINE ORANGE (YELLOW); ICTOTEST,URINE POSITIVE (Negative); OCCULT BLOOD,URINE TRACE (NEGATIVE); PH,URINE 5.5 (5.0-8.0)
[2017-01-21 15:36] VITALS: BP 97/56; PULSE 117; RESP 20; O2SAT 93
[2017-01-21 15:50] VITALS: BP 90/55; PULSE 112; RESP 20; O2SAT 95
[2017-01-21 16:35] VITALS: BP 90/55; PULSE 102; RESP 20; O2SAT 94
[2017-01-21 18:43] VITALS: BP 86/54; PULSE 96; RESP 22; O2SAT 95
== END 2017-01-21 18:49 | disposition short-term general hospital (02) ==
LOC: SED 11:29 → EDUNIT# 11:29 → EDBD 11:29 → SED 18:49
DX: R10.13 Epigastric pain (principal); K83.1 Obstruction of bile duct; E78.5 Hyperlipidemia, unspecified; Z86.73 Personal history of transient ischemic attack (TIA), and cerebral infarction without residual deficits; Z90.49 Acquired absence of other specified parts of digestive tract; Z79.82 Long term (current) use of aspirin; Z87.891 Personal history of nicotine dependence; Z88.5 Allergy status to narcotic agent
CPT/HCPCS: 36415; 70450; 74022; 80053; 81000; 82140; 82274; 83605; 83735; 84484; 85025; 85610; 87040; 87077; 87186; 96361; 96365; 96375; 99285; J1170; J2405; J2543; J7030